=== PATIENT | female | born 1950 | race Caucasian/White ===

== ENCOUNTER → 2021-06-01 14:02 | Outpatient (CLI) | payer MEDICARE, SELFPAY | PROVIDERS: PCP Pediatrics; Visit Provider Nurse Practitioner | DX: Z20.822 Contact with and (suspected) exposure to COVID-19 (principal) | CPT/HCPCS: C9803; U0003; U0005 ==

== ENCOUNTER 2021-06-19 12:41 | Emergency (ER) | payer MEDICARE, SELFPAY ==
[2021-06-19 12:49] VITALS: PULSE 85; RESP 18; TEMP 36.8; O2SAT 98; BMI 33.6
[2021-06-19 14:15] VITALS: BP 153/77; PULSE 85; RESP 18; TEMP 36.8; O2SAT 98; BMI 33.8
[2021-06-19 14:29] LABS: UTC Influenza A Antigen Negative (Negative)
[2021-06-19 14:30] LABS: UTC Influenza B Antigen Negative (Negative)
--- NOTE | 2021-06-19 14:30 | HMH.EDUTC ---
[facility] [place] Disposition Clinical Impression: Bronchitis, Exposure to COVID-19 virus Disposition: Home, Self-Care Condition on Discharge: Good Instructions: DI for COVID-19 (Suspected or Confirmed ), DI for Acute Bronchitis Additional Instructions: covid swab was sent to lab, call tomorrow for results. self isolate until test results are known to be negative No sign of a bacterial infection. Likely viral. Viruses can take 7-14 days to run their course. Nasal saline and bulb syringe or nose Anna to remove nasal drainage to help with nasal congestion. Hard to eat, drink, sleep with nasal congestion so important to keep this cleaned out. Monitor temp. Tylenol or Motrin as needed for pain or fever Encourage fluids, water, Gatorade, Powerade, Pedialyte if /toddler/child Warm salt water gargles Warm fluids Sore throat lozenges Sleep elevated Humidifier/vaporizer Follow-up immediately for new or worsening symptoms or no noticeable improvement over the next 48-72 hours. watch glucose close while on med Prescriptions: predniSONE [Prednisone 20mg Tab] 20 mg PO BID #10 tab Prescription Printed Azithromycin [Zithromax 250mg tab] 250 mg PO DIRECTED #6 tab Prescription Printed Referrals: Pedro Reynaga MD [Primary Care Provider] - Time of Disposition: 14:35 Medical Decision Making - Miguelangel Inquiry Pt receiving controlled substance: No Vital Signs: 06/19/21 12:49 Temperature 98.3 F Temperature Source Oral Pulse Rate [Left Radial] 85 Respiratory Rate 18 02 Sat by Pulse Oximetry 98 Oxygen Delivery Method Room Air - Lab Data Lab Results 06/19/21 14:22: Influenza Type A Ag Negative, Influenza Type B Ag Negative Orders (Tests/Meds): ORDERS Category Date Time Status Covid-19 Nasal PCR ([facility]) Routine Lab 06/19/21 14:12 Received Medical Decision Narrative: pt does not want to go to ed for eval [facility] [place] HPI - General Chief complaint: Urgent [facility] Stated complaint: chills, cough, stomach pains, left ear pain Time Seen by Provider: 06/19/21 14:30 Mode of Arrival: Ambulatory Source of Information: Patient Limitations: No Limitations Description of Symptoms (Recalled from Triage Doc. by RN): chills, non productive cough, no appetite and tired for one week - History of Present Illness Provider Complaint: 70 yr old female presents for chills, cough, pain in chest when coughing, body aches and tiredness. covid exposed son is positive - Related Data Previous Rx's Medication Instructions Recorded Azithromycin [Zithromax 250mg 250 mg PO DIRECTED #6 tab 06/19/21 tab] predniSONE [Prednisone 20mg 20 mg PO BID #10 tab 06/19/21 Tab] Allergies Allergy/AdvReac Type Severity Reaction Status Date / Time CODEINE Allergy Unknown I-RASH Uncoded 05/02/17 14:34 From CIPRO Allergy Unknown I-RASH Uncoded 05/02/17 14:34 From LEVAQUIN Allergy Unknown I-RASH Uncoded 05/02/17 14:34 PCN (PENICILLIN) Allergy Unknown I-RASH Uncoded 05/02/17 14:34 Penicillin Allergy Unknown Uncoded 05/02/17 14:34 Quinolone Allergy Unknown Uncoded 05/02/17 14:34 Sulfonamide Allergy Unknown Uncoded 05/02/17 14:34 [facility] History - Hepatitis A Screen Attestation statement:: This patient has been screened for Hepatitis A risk factors. I have reviewed the patient's past medical history: Yes ROS Obtained: Yes Systems reviewed as appropriate & no additional complaints - Constitutional Constitutional: Reports system reviewed and no additional complaints, except as docu, Reports body ache, Reports chills, Reports fatigue, Reports fever(s), Reports poor appetite - Eyes Eyes: Reports system reviewed and no additional complaints, except as docu, Denies loss of vision - ENT Ears, Nose, Mouth, and Throat: Reports system reviewed and no additional complaints, except as docu, Reports nasal congestion, Reports nasal discharge, Reports sore throat - Cardiovascular Cardiovascular: R
[2021-06-19 14:34] VITALS: BP 153/77; PULSE 85; RESP 18; TEMP 36.8; O2SAT 98
== END 2021-06-19 14:40 | disposition home or self-care (01) ==
PROVIDERS: Emergency Provider Nurse Practitioner Family; PCP Pediatrics
DX: R05.9 Cough, unspecified (principal); Z20.822 Contact with and (suspected) exposure to COVID-19; J40 Bronchitis, not specified as acute or chronic
CPT/HCPCS: G0463; 87804; 99202; C9803; U0003; U0005

== ENCOUNTER 2022-08-11 09:18 | Emergency (ER) | payer MEDICARE, SELFPAY ==
[2022-08-11] VITALS (8 sets, daily range): BP systolic 125–155; BP diastolic 46–61; PULSE 71–76; RESP 18–20; TEMP 36.4; O2SAT 97; BMI 37.8
--- NOTE | 2022-08-11 09:20 | HMH.EDGENADL ---
Discharge Plan Disposition Patient Disposition: Home, Self-Care Prescriptions Prescriptions: No Action azithromycin 250 MG tablet 250 mg PO DIRECTED Qty: 6 0RF Rx Instructions: Take two (2) tablets on day #1, then one (1) tablet day #2 thru #5 prednisone 20 MG tablet 20 mg PO BID Qty: 10 0RF Activity Restrictions/Add. Instructions Additional Instructions/Restrictions: You may take Tylenol and ibuprofen as discussed. If you have any functional or cosmetic outcome that you would like to be evaluated by surgeon you can follow-up with the ENT therapeutic case manager or plastic surgery at your preference. Clinical Impressions Clinical Impression: Fracture of nasal bones, Hematoma of frontal scalp, Fall Discharge ED Provider: Lalo Moya General Adult HPI General Chief complaint: Fall Stated complaint: fall Time Seen by Provider: 08/11/22 09:20 History of Present Illness HPI narrative: 71-year-old female presenting by EMS after a fall and head injury. States that she had a mechanical fall and there is no syncopal or lightheaded episode that preceded this. States that she heard a pop superior aspect of her nasal bridge and has had bleeding externally and internally to her nose. No loss of consciousness after the head injury. No neck pain no maxillary or jaw pain associated with this just significant nose pain. She is not on anticoagulation. Other than significant pain in her nose and forehead she denies any pain elsewhere in her body, aside from her left hand which is increasing pain over the ulnar aspect of the metacarpophalangeal joint of the fifth digit. Related Data Previous Rx's Medication Instructions Recorded azithromycin 250 mg tablet 250 mg PO DIRECTED #6 tabs 06/19/21 prednisone 20 mg tablet 20 mg PO BID #10 tabs 06/19/21 Allergies Allergy/AdvReac Type Severity Reaction Status Date / Time ciprofloxacin Allergy Intermediate Rash Verified 08/11/22 09:46 codeine Allergy Intermediate Rash Verified 08/11/22 09:46 levofloxacin [From Levaquin] Allergy Intermediate Rash Verified 08/11/22 09:46 Penicillins Allergy Intermediate Rash Verified 08/11/22 09:46 Sulfa (Sulfonamide Allergy Intermediate Unknown Verified 08/11/22 09:46 Antibiotics) allergy reaction oxycodone [From Percocet] Allergy Unknown Verified 08/11/22 09:46 allergy reaction [facility] Disclaimer: The information contained in this section may have been updated after the patient was seen, as this information can be updated by other users. Social History Smoking Status: Never smoker alcohol intake: never current occupational status: other Travel in the last 8 weeks: None ROS Obtained: Yes All systems reviewed & no additional complaints except as documented Physical Exam General General appearance: alert Head Head exam: normocephalic (Hematoma frontal aspect of her forehead there is significant swelling over the bridge of her nose with a 0.5 cm laceration.) ENT ENT exam: Present other (No septal hematoma there is bleeding from bilateral nares intranasally, no midface instability or jaw tenderness or instability) Neck Neck exam: Absent tenderness Respiratory Respiratory exam: Present normal lung sounds bilaterally Cardiovascular Cardiovascular exam: Present regular rate; Absent tachycardia Abdominal Exam Abdominal exam: Present soft; Absent distention or tenderness Extremities Exam Extremities exam: Present other (Left hand fifth MCP tenderness and proximal phalanx tenderness over the left fifth digit neurovascular intact in no deformity) Neurological Exam Neurological exam: Present alert, oriented X3, CN II-XII intact and normal gait; Absent motor sensory deficit Medical Decision Making Miguelangel Inquiry Pt receiving controlled substance: No Vital Signs: 08/11/22 09:18 08/11/22 09:31 08/11/22 10:04 Temperature 97.6 F Temperature Source Oral Pulse Rate 71 Pulse Rate
--- NOTE | 2022-08-11 09:27 | CT_ITS ---
FINAL REPORT TECHNIQUE: Thin section axial images were obtained through the cervical spine without contrast. Multiplanar reconstruction images were obtained from the axial data. Exam was performed using dose reduction techniques. CLINICAL HISTORY: fall, injury fall, injury, laceration to nose, no LOC FINDINGS: There is a lucency through the right aspect of the C1 ring. The margins of this lucency are very well corticated. This may be old. No additional cervical spine fracture is identified. There is no facet lock. The craniocervical junction is normal. There is multilevel degenerative disc disease, most pronounced at C5-6 and C6-7. No acute paraspinal abnormality is identified. IMPRESSION: Lucency through the right aspect of the C1 ring, favor chronic. This may even be congenital. No acute fracture is identified. Consider MRI if clinical concern persists. Reviewed, Interpreted and Dictated by Alexa Ware MD Transcribed by Naye Bloom Authenticated and [facility]
--- NOTE | 2022-08-11 09:27 | CT_ITS ---
FINAL REPORT TECHNIQUE: Thin section axial images were obtained from skull base to vertex without contrast. Coronal reconstruction images were obtained from the axial data. Exam was performed using dose reduction technique. CLINICAL HISTORY: fall, injury fall, injury, laceration to nose, no LOC FINDINGS: There is no mass effect or midline shift. There is no hydrocephalus. There is no intracranial hemorrhage. The posterior fossa is without acute abnormality. The basilar cisterns are preserved. There is soft tissue edema along the left frontal scalp. No acute skull fracture is identified. IMPRESSION: No acute intracranial abnormality. Soft tissue edema along the left frontal scalp. Reviewed, Interpreted and Dictated by Alexa Ware MD Transcribed by Naye Bloom Authenticated and [facility]
--- NOTE | 2022-08-11 09:27 | XR_ITS ---
FINAL REPORT CLINICAL HISTORY: fall, injury, pain in 4th and 5th digit COMPARISON: none FINDINGS: AP, oblique, and lateral views of the left hand were obtained. There is no prior exam for comparison. There is no acute fracture of the left hand. The joint spaces are preserved. The soft tissues are normal. IMPRESSION: No acute osseous abnormality of the left hand. Reviewed, Interpreted and Dictated by Alexa Ware MD Transcribed by Madeleine Jeff Authenticated and [facility]
--- NOTE | 2022-08-11 09:27 | CT_ITS ---
FINAL REPORT TECHNIQUE: Thin section axial images were obtained through the face without contrast. Coronal reconstruction images are obtained from the axial data. CLINICAL HISTORY: fall, injury, laceration to nose, no LOC FINDINGS: There are bilateral, comminuted nasal bone fractures. There is right lateral displacement and angulation of both fractures. No additional facial fracture is identified. There is very mild mucoperiosteal thickening in the right maxillary sinus, likely chronic. There is prominent soft tissue edema along the bridge of the nose. Incidental note is made of advanced degenerative disease at the temporomandibular joints. IMPRESSION: Bilateral comminuted nasal bone fractures as above. Reviewed, Interpreted and Dictated by Alexa Ware MD Transcribed by Naye Bloom Authenticated and [facility]
--- NOTE | 2022-08-11 09:38 | PC.NURSE ---
pt to xray
--- NOTE | 2022-08-11 10:00 | PC.NURSE ---
Pt back from CT
--- NOTE | 2022-08-11 10:00 | PC.NURSE ---
Rounded on patient to see if medication was helping the pain. Pt stated it was helping. She stated she did not need anything at this time. Call light within reach
== END 2022-08-11 11:41 | disposition home or self-care (01) ==
PROVIDERS: Emergency Provider Student in an Organized Health Care Education/Training Program; PCP Pediatrics
DX: S02.2XXA Fracture of nasal bones, initial encounter for closed fracture (principal); S00.03XA Contusion of scalp, initial encounter; W19.XXXA Unspecified fall, initial encounter
CPT/HCPCS: 12011; 70450; 70486; 72125; 73130; 99284; 99285

== ENCOUNTER 2024-03-14 12:29 | Outpatient (CLI) | payer MEDICARE, SELFPAY ==
--- NOTE | 2024-03-14 12:30 | CT_ITS ---
PROCEDURE INFORMATION: Exam: CT Abdomen Without And With Contrast Exam date and time: 03/14/2024 1:21 PM Age: 73 years old Clinical indication: Abdominal pain; Localized; Right; Additional info: Right-sided abdominal pain TECHNIQUE: Imaging protocol: Computed tomography of the abdomen without and with contrast. Radiation optimization: All CT scans at this facility use at least one of these dose optimization techniques: automated exposure control; mA and/or kV adjustment per patient size (includes targeted exams where dose is matched to clinical indication); or iterative reconstruction. Contrast material: ISOVUE; Contrast volume: 75 ml; Contrast route: IV; COMPARISON: No relevant prior studies available. FINDINGS: Coronary arteries: Coronary artery calcifications may indicate coronary artery disease. Liver: Normal. No mass. Gallbladder and biliary ducts: Cholecystectomy Pancreas: Normal. No ductal dilation. Spleen: Normal. No splenomegaly. Adrenal glands: Normal. No mass. Kidneys: Mild bilateral renal atrophy. No hydronephrosis Stomach and bowel: 2.5 cm collection of air and debris projecting off of the 3rd duodenum. Most likely represents duodenal diverticulum., Less likely duodenal ulcer. Intraperitoneal space: Unremarkable. No free air. No significant fluid collection. Vasculature: Unremarkable. No abdominal aortic aneurysm. Lymph nodes: Pathologic periportal node 13 x 11 mm series 5, image 40 Bones/joints: Unremarkable. No acute fracture. No dislocation. Soft tissues: Unremarkable. IMPRESSION: 2.5 cm collection of air and debris projecting off of the 3rd duodenum. Most likely represents duodenal diverticulum., Less likely duodenal ulcer.
[2024-03-14 13:03] LABS: Blood Urea Nitrogen 31 mg/dl (7-17); Estimated Glomerular Filt Rate 34 ml/min (>60); GFR (African American) 41 ML/MIN (>60)
[2024-03-14] MEDS: SODIUM CHLORIDE 0.9% 10ML SYR (RAD ONLY) 10 ML IV (13:34)
[2024-03-14] MEDS: IOPAMIDOL-370 (76%);100ML BOTTLE 75 ML IV (13:34)
== END 2024-03-14 23:59 | disposition home or self-care (01) ==
LOC: RAD 12:30
PROVIDERS: PCP Pediatrics; Visit Provider Internal Medicine Gastroenterology
DX: R14.0 Abdominal distension (gaseous) (principal); R19.7 Diarrhea, unspecified; R10.9 Unspecified abdominal pain
CPT/HCPCS: 36415; 74170; 82565; 84520; Q9967

== ENCOUNTER 2024-03-15 08:21 | Outpatient (CLI) | payer MEDICARE, SELFPAY ==
[2024-03-19 01:13] LABS: Pancreatic Elastase, Fecal 684 (>200)
== END 2024-03-15 23:59 | disposition home or self-care (01) ==
LOC: LAB 06-17 09:34
PROVIDERS: Visit Provider Internal Medicine Gastroenterology
DX: R19.7 Diarrhea, unspecified (principal); R14.0 Abdominal distension (gaseous)
CPT/HCPCS: 82656

== ENCOUNTER 2024-04-24 07:23 | Day surgery (SDC) | payer MEDICARE, SELFPAY ==
[2024-04-19 15:03] VITALS: BMI 37.2
[2024-04-24 08:21] VITALS: BP 159/69; PULSE 81; RESP 16; TEMP 36.1; O2SAT 97
[2024-04-24] MEDS: LACTATED RINGERS 1000ML 1,000 ML 25 ML IV (08:29)
[2024-04-24 08:34] LABS: POC Glucose,Bedside 154 (70-110)
--- NOTE | 2024-04-24 08:34 | EXP.ANES.CKL ---
[facility] Disclaimer: The information contained in this section may have been updated after the patient was seen, as this information can be updated by other users. Medical History GERD (gastroesophageal reflux disease) Diabetes Obstructive sleep apnea Hyperlipidemia Hypertension Gassiness Surgical History History of laparoscopic appendectomy History of hysterectomy History of cholecystectomy History of tonsillectomy Family History Other No significant family history Social History Smoking Status: Never smoker alcohol intake: never substance use type: denies use current occupational status: other Travel in the last 8 weeks: None [facility] Anesthesia Checklist Patient Identification Patient Identification: Verbal (Name & ) Structural Data Admitted From: Home Planned Operative Procedure/s: colonoscopy Consent for Planned Operative Procedure(s) Verified: Yes NPO Status Verified Time NPO: 00:00 Airway Assessment Mallampati Score:: Class III C-Spine Mobility Assessed: Yes TMJ Mobility Assessed: Yes Dentition: Poor Dentition Neurological Assessment Level of Consciousness: Awake, Alert and Appropriate Anesthesia Plan Anesthesia Risk discussed: Yes Anesthesia Plan: Verified ASA Class: III Anesthesia Type: MAC
--- NOTE | 2024-04-24 08:59 | P.PNANES_ITS ---
[facility] Disclaimer: The information contained in this section may have been updated after the patient was seen, as this information can be updated by other users. Medical History GERD (gastroesophageal reflux disease) Diabetes Obstructive sleep apnea Hyperlipidemia Hypertension Gassiness Surgical History History of laparoscopic appendectomy History of hysterectomy History of cholecystectomy History of tonsillectomy Family History Other No significant family history Social History (Updated 04/24/24 @ 08:35 by Rick Saenz CRNA) Smoking Status: Never smoker alcohol intake: never substance use type: denies use current occupational status: other Travel in the last 8 weeks: None [facility] Anesthesia Checklist Patient Identification Patient Identification: Verbal (Name & ) Structural Data Admitted From: Home Planned Operative Procedure/s: lmt NPO Status Verified Time NPO: 00:00 Airway Assessment Mallampati Score:: Class II C-Spine Mobility Assessed: Yes TMJ Mobility Assessed: Yes Dentition: Poor Dentition Neurological Assessment Level of Consciousness: Awake, Alert and Appropriate Anesthesia Plan Anesthesia Risk discussed: Yes Anesthesia Plan: Verified ASA Class: III Anesthesia Type: MAC
--- NOTE | 2024-04-24 09:04 | HMH.PROCNOTE ---
[facility] Procedure Note Date: 04/24/24 Time: 09:22 Procedure Note:: Colonoscopy Procedure Report: Colonoscopy with cold snare polypectomy Endoscopist: Frankie Price II, MD Referring physician: Pedro Reynaga MD Date of Procedure: April 24, 2024 Equipment: Olympus 190 variable stiffness pediatric colonoscope Sedation: MAC sedation Indication: Mrs. Duggan is a 73-year-old female who is here for diagnostic colonoscopy secondary to right sided abdominal pain and focal right sided abdominal swelling. She does have obstipation and her CAT scan had shown large fecal burden and a duodenal diverticulum. She was due for surveillance colonoscopy secondary to a personal history of adenomatous polyps. She reports nausea, gassiness and bloating. She reports constipation followed by diarrhea. She did have prior cholecystectomy. She reports no rectal bleeding or weight loss. Procedure: Prior to the procedure, a history and physical exam was performed, and patient's medications and allergies were reviewed. The risks, benefits and alternatives of the sedation and procedure were discussed with the patient. All questions were answered and informed consent was obtained. The patient was brought to the procedure room. Patient identification and proposed procedure were verified by the physician and the nurse. The patient was placed in a left lateral decubitus position and the scope was passed under direct vision. Throughout the procedure, the patient's blood pressure, pulse, and oxygen saturations were monitored continuously. The colonoscopy was accomplished without difficulty. The patient tolerated the procedure well. Findings: On digital rectal examination there was normal rectal tone. There were no external hemorrhoids. The colonoscope was introduced through the anal canal to the rectum and advanced to the cecum. The ileocecal valve and appendiceal orifice were identified. The scope was advanced a short distance into the ileum which appeared grossly normal. The scope was then withdrawn into the colon. There was a single polyp over the appendiceal orifice that had a small mucous cap and was 4 to 5 mm. This was removed via cold snare polypectomy. The remaining cecum, ascending and transverse colon and mucosa were grossly normal. There was some angulation at the hepatic flexure suggestive of hepatic flexure syndrome. There were scattered diverticuli throughout the descending and sigmoid colon (LEFT colon). The rectum itself was normal. Upon retroflexion within the rectum there were grade 1-2 internal hemorrhoids. The preparation was excellent throughout with [place] Preparation Score of 9. The cecal time was 12 minutes. Impression: 1. Diminutive cecal polyp (4 to 5 mm) with mucus cap?probable small serrated adenoma 2. 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 Left-sided diverticulosis 4. Grade 1-2 internal hemorrhoids Plan: I did recommend the fiber bowel regimen (combined MiraLAX plus Citrucel) and buspirone. The patient states that her symptoms are not clearly improved. We will discuss additional treatment options. I will follow-up the polyp histology and recommend repeat surveillance colonoscopy again in 5 to 7 years based upon pathology.
[2024-04-24 09:11] VITALS: O2SAT 97
[2024-04-24 09:41] VITALS: BP 125/76; PULSE 84; RESP 18; TEMP 36.1; O2SAT 95
[2024-04-24 09:51] VITALS: BP 169/78; PULSE 81; RESP 18; O2SAT 93
[2024-04-24 10:01] VITALS: BP 169/78; PULSE 81; RESP 18; O2SAT 95
[2024-04-24 10:17] VITALS: BP 169/72; PULSE 72; RESP 18; O2SAT 97
== END 2024-04-24 10:17 | disposition home or self-care (01) ==
PROVIDERS: PCP Pediatrics; Visit Provider Internal Medicine Gastroenterology
PROC: (CPT 45385; principal; 2024-04-24 09:00)
DX: R10.9 Unspecified abdominal pain (principal); K59.89 Other specified functional intestinal disorders; R14.0 Abdominal distension (gaseous); R11.0 Nausea; K57.10 Diverticulosis of small intestine without perforation or abscess without bleeding; Z09 Encounter for follow-up examination after completed treatment for conditions other than malignant neoplasm; Z86.0101 Personal history of adenomatous and serrated colon polyps; K63.5 Polyp of colon; K57.30 Diverticulosis of large intestine without perforation or abscess without bleeding; K64.8 Other hemorrhoids; E11.8 Type 2 diabetes mellitus with unspecified complications; Z79.4 Long term (current) use of insulin
CPT/HCPCS: 45385; 82962; 88305; J7120

== ENCOUNTER 2025-01-30 13:44 | Emergency (ER) | payer MEDICARE, SELFPAY ==
[2025-01-30 13:46] VITALS: BP 153/64; BP 164/96; PULSE 64; PULSE 87; RESP 15; RESP 16; TEMP 36.4; O2SAT 99; BMI 34.5
[2025-01-30 14:30] VITALS: BP 145/76; PULSE 77; RESP 21; O2SAT 99
[2025-01-30 15:15] VITALS: BP 153/64; PULSE 61; RESP 18; O2SAT 99
--- NOTE | 2025-01-30 15:17 | HMH.EDGENADL ---
Discharge Plan Disposition Patient Disposition: Home, Self-Care Condition: Good Prescriptions Prescriptions: New doxycycline hyclate 100 mg tablet 100 mg PO BID 14 Days Qty: 10 0RF methocarbamol 500 mg tablet 500 mg PO BID Qty: 15 0RF No Action buspirone 10 mg tablet 10 mg PO DAILY buspirone 10 mg tablet 10 mg PO BID Qty: 60 2RF Rx Instructions: Please take 1/2 tablet p.o. nightly x 5 to 7 days and then 1 tablet p.o. nightly x 5 to 7 days and then 1 tablet p.o. twice daily thereafter cyclobenzaprine 10 mg tablet 10 mg PO PRN Patient Comments: TAKE 1 TABLET BY MOUTH EVERY 8 HOURS NEEDED FOR NECK STRAIN escitalopram oxalate 10 mg tablet 10 mg PO DAILY Patient Comments: TAKE 1 TABLET BY MOUTH ONCE DAILY (DME) pen needle, diabetic 32 gauge x /32 needle See Rx Instructions .ROUTE .MEDSUPPLY Qty: 1200 Rx Instructions: As directed Jardiance 25 mg tablet 25 mg PO DAILY (DME) FreeStyle Celso 2 Sensor Kit See Rx Instructions .ROUTE .MEDSUPPLY Qty: 1 Rx Instructions: As directed atenolol 50 mg tablet 50 mg PO DAILY allopurinol 300 mg tablet 300 mg PO DAILY olmesartan 20 mg tablet 20 mg PO DAILY Soliqua 100/33 100 unit-33 mcg/mL insulin pen 60 unit SQ DAILY omeprazole 40 mg capsule,delayed release(DR/EC) 40 mg PO DAILY Qty: 90 3RF buspirone 10 mg tablet 20 mg PO BID Qty: 120 12RF Rx Instructions: Please take 2 tablets p.o. twice daily Referrals Follow up/Referrals: Pedro Reynaga MD [Primary Care Provider, Medical] - See instructions Activity Restrictions/Add. Instructions Additional Instructions/Restrictions: Take the antibiotics as prescribed for 14 days. You can take the Robaxin in addition to Tylenol and ibuprofen for your symptoms return to the emergency department for any acute or worsening symptoms or redness that spreads beyond the area that it is now. Clinical Impressions Clinical Impression: Cat bite, Cellulitis Instructions Patient Instructions: Animal Bites Print Language Print Language: Welsh Discharge ED Provider: Carine Alatorre Adult HPI General Chief complaint: Animal Bite Stated complaint: AO-Cat bite R leg-poss infect, can't bare weight Time Seen by Provider: 01/30/25 15:16 History of Present Illness HPI narrative: Patient with history of diabetes, hypertension presented to the emergency department with right lower extremity pain. The patient states that she got bit by 2 days ago. Patient states that the cat got caught in the door and that is why the cat to the emergency. She states that she has had increased pain in her leg and is unable to bear weight. Patient states that she had immediate pain afterwards that has continued to get worse. Patient reports some mild redness around the Bite. Patient denies any fevers or other symptoms. Related Data Home Medications ?Medication ?Instructions ?Recorded ?Confirmed allopurinol 300 mg tablet 300 mg PO DAILY 02/28/24 10/29/24 atenolol 50 mg tablet 50 mg PO DAILY 02/28/24 10/29/24 insulin glargine 100 60 unit SQ DAILY 02/28/24 10/29/24 unit-lixisenatide 33 mcg/mL subcutaneous pen (Soliqua 100/33) olmesartan 20 mg tablet 20 mg PO DAILY 02/28/24 10/29/24 buspirone 10 mg tablet 10 mg PO DAILY 04/02/24 10/29/24 cyclobenzaprine 10 mg tablet 10 mg PO PRN 10/29/24 10/29/24 empagliflozin 25 mg tablet 25 mg PO DAILY 10/29/24 10/29/24 (Jardiance) escitalopram oxalate 10 mg tablet 10 mg PO DAILY 10/29/24 10/29/24 flash glucose sensor (FreeStyle #1 ea 10/29/24 10/29/24 Celso 2 Sensor kit) pen needle, diabetic 32 gauge x #1,200 ea 10/29/24 10/29/24 Previous Rx's ?Medication ?Instructions ?Recorded buspirone 10 mg tablet 10 mg PO BID #60 tabs 04/02/24 buspirone 10 mg tablet 20 mg (2 x 10 mg) PO BID #120 tabs 04/24/24 omeprazole 40 mg capsule,delayed 40 mg PO DAILY #90 caps 07/30/24 release doxycycline hyclate 100 mg tablet 100 mg PO BID 14 days #10 tabs 01/30/25 methocarbamol 500 mg tablet 500 mg PO BID #15 tabs 01/30/25 Allergies Allergy/AdvReac Type Severity Reaction Status Date / Time ciprofloxacin Allergy Intermediate Rash Verified 10/29/24 09:49 codeine Allergy Intermediate Rash Verified 10/29/24 09:49 levofloxacin (From Levaquin) Allergy Intermediate Rash Verified 10/29/24 09:49 Penicillins Allergy Intermediate Rash Verified 10/29/24 09:49 Sulfa (Sulfonamide Allergy Intermediate Swelling Verified 10/29/24 09:49 Antibiotics) of Lip/Tongue/Throat oxycodone (From Percocet) Allergy Difficulty Verified 10/29/24 09:49 Breathing PFSH PFS Disclaimer: The information contained in this section may have been updated after the patient was seen, as this information can be updated by other users. Medical History GERD (gastroesophageal reflux disease) Diabetes Obstructive sleep apnea Hyperlipidemia Hypertension Gassiness Surgical History History of laparoscopic appendectomy History of hysterectomy History of cholecystectomy History of tonsillectomy Family History Other No significant family history Social History Smoking Status: Never smoker alcohol intake: never substance use type: denies use current occupational status: other Travel in the last 8 weeks?: None Have you lived/traveled outside US in past 30 days?: No Contact w/someone who lives/traveled outside US past 30 days?: No Exposure to someone with infectious disease in past 14 days?: No Do you have a fever (greater than 100.4 F or 38 C)?: No Have you tested positive for COVID-19?: No Exposed to someone with COVID-19 in past 14 days?: No Do you have a sore throat?: No Do you have a cough?: No Do you have any weakness?: No Do you have any diarrhea?: No Are you experiencing any unusual bleeding?: No Do you have any muscle aches/pain?: No Do you have any abdominal pain?: No Are you experiencing loss of taste or smell?: No Other Medical History Have you received the Pneumonia Vaccine: Yes ROS Obtained: Yes All systems reviewed & no additional complaints except as documented and Yes Systems reviewed as appropriate & no additional complaints except as documented Physical Exam General General appearance: alert and in no apparent distress Head Head exam: atraumatic, normocephalic and normal inspection Eye Eye exam: Present normal appearance, PERRL and EOMI; Absent scleral icterus ENT ENT exam: Present normal exam and normal external ear exam Neck Neck exam: Present normal inspection and full ROM Chest Chest inspection: Present normal inspection and symmetric chest wall rise Respiratory Respiratory exam: Present normal lung sounds bilaterally; Absent respiratory distress or wheezes Cardiovascular Cardiovascular exam: Present regular rate, normal rhythm and normal heart sounds Abdominal Exam Abdominal exam: Present soft and distention; Absent tenderness, guarding or rebound Extremities Exam Extremities exam: Present normal inspection, full ROM and other (some decreased ROM of the right ankle) Back Exam Back exam: Present normal inspection and full ROM Neurological Exam Neurological exam: Present alert and oriented X3 Psychiatric Psychiatric exam: Present normal affect and normal mood Skin Skin exam: Present warm, dry and other (one small incision site on the right distal leg with surrounding redness, no palpable fluctuance or drainage) Medical Decision Making Medical Records Screening: Per USPSTF and CDC recommendations, given the prevalence of disease in our region, it is our hospital?s policy to screen for HIV and viral Hepatitis for all patients aged 18 and over and those with ongoing risk factors. Miguelangel Inquiry Pt receiving controlled substance: No Vital Signs: 01/30/25 13:46 01/30/25 13:46 01/30/25 14:30 Temperature 97.6 F Temperature Source Oral Pulse Rate 87 77 Pulse Rate [Left Radial] 64 Respiratory Rate 15 16 21 Blood Pressure 164/96 H 145/76 H Blood Pressure [Right Arm] 153/64 H Blood Pressure Mean [Right Arm] 93 02 Sat by Pulse Oximetry 99 99 99 Oxygen Delivery Method Room Air Room Air 01/30/25 15:15 01/30/25 16:00 01/30/25 17:53 Temperature Temperature Source Pulse Rate 61 61 65 Pulse Rate [Left Radial] Respiratory Rate 18 19 20 Blood Pressure 153/64 H 143/61 H 136/63 Blood Pressure [Right Arm] Blood Pressure Mean [Right Arm] 02 Sat by Pulse Oximetry 99 99 99 Oxygen Delivery Method Room Air Room Air Room Air Lab Data Lab results reviewed: Yes I reviewed the patient's lab results. Lab Results 01/30/25 15:42: WBC 11.3 H, RBC 4.03 L, Hgb 12.3, Hct 36.1 L, MCV 89.6, MCH 30.5, MCHC 34.1, RDW 14.7, Plt Count 285, MPV 9.9, Neut % (Auto) 76.9, Lymph % (Auto) 13.7, [place] % (Auto) 7.8, Eos % (Auto) 0.6, Baso % (Auto) 0.5, Neut # (Auto) 8.7 H, Lymph # (Auto) 1.6, [place] # (Auto) 0.9, Eos # (Auto) 0.1, Baso # (Auto) 0.1, Sodium 135 L, Potassium 4.9, Chloride 101, Carbon Dioxide 24, Anion Gap 14.9, BUN 31 H, Creatinine 1.90 H, Estimated Creat Clear 37, Estimated GFR 26 L, Est GFR ( Amer) 31 L, Glucose 213 H, Calcium 9.6, Total Bilirubin 0.6, AST 20, ALT 16, Alkaline Phosphatase 123, C-Reactive Protein 59.9 H, Total Protein 7.8, Albumin 4.4, Globulin 3.4 H, Albumin/Globulin Ratio 1.3, HCV Ab JULIÁN w/Rflx PCR Qn Negative, HIV Ag/Ab Combo Qual Negative 01/30/25 15:42 01/30/25 15:42 Orders (Tests/Meds): ED MEDICATIONS Generic Name Dose Route Start Last Admin Trade Name Freq PRN Reason Stop Dose Admin Methocarbamol 500 mg 01/30/25 18:02 Methocarbamol 500mg Tablet PO 01/30/25 18:03 ONCE ONE Discontinued Medications Generic Name Dose Route Start Last Admin Trade Name Freq PRN Reason Stop Dose Admin Acetaminophen 1,000 mg 01/30/25 17:14 01/30/25 17:29 Acetaminophen 500mg Tab PO 01/30/25 17:15 1,000 mg ONCE ONE Administration Doxycycline Hyclate 100 mg 01/30/25 15:34 01/30/25 16:02 Doxycycline Hycl 100 Mg Tablet PO 01/30/25 15:35 100 mg ONCE ONE Administration Fentanyl Citrate 25 mcg 01/30/25 17:15 01/30/25 17:30 Fentanyl 100mcg/2ml Vial IV 01/30/25 17:16 25 mcg ONCE ONE Administration Sodium Chloride 1,000 mls @ 999 mls/hr 01/30/25 16:22 01/30/25 17:12 Sod Chlor 0.9% 1000ml Bag IV 01/30/25 17:22 999 mls/hr .Q1H1M ONE Administration Iopamidol 75 ml 01/30/25 16:33 01/30/25 16:34 Iopamidol-370 (76%);100ml Bottle IV 01/30/25 16:34 75 ml ONCE ONE Administration Sodium Chloride 10 ml 01/30/25 16:33 01/30/25 16:33 Sodium Chloride 0.9% 10ml Syr (Rad Only) IV 01/30/25 16:34 10 ml ONCE ONE Administration Tetanus/Reduced Diphtheria/Acell Pertussis 0.5 ml 01/30/25 15:45 01/30/25 16:03 Tet/Diphth/Pert-Adult 0.5ml Syringe IM 01/30/25 15:46 0.5 ml .ONCE ONE Administration ORDERS Category Date Time Status CT RLE w/ con Stat Cat Scan 01/30/25 15:28 Completed CBC w/Auto Diff [Complete Blood Count Auto Diff] Stat Lab 01/30/25 15:42 Completed CMP [Comprehensive Metabolic Panel] Stat Lab 01/30/25 15:42 Completed CRP [C-Reactive Protein] Stat Lab 01/30/25 15:42 Completed HIV Combo Stat Lab 01/30/25 15:42 Completed Hepatitis C Ab Qual. W/ RFX Stat Lab 01/30/25 15:42 Completed Blood Culture Stat Micro 01/30/25 15:56 Received Medical Decision Narrative: Patient is a 74-year-old female with a past medical history of diabetes and hypertension who presented to the emergency department with right lower extremity wound and pain. On arrival, patient was hemodynamically stable with unremarkable signs. Differential limited to: Pain related to dog bite, cellulitis, abscess, fracture, amongst others. Patient's labs were reviewed and interpreted by myself: CBC showed mild leukocytosis, hemoglobin was stable. CMP showed mildly elevated creatinine at 1.9 from baseline of 1.6. CMP was otherwise unremarkable. CRP elevated at 59.9. CT scan was reviewed and interpreted by myself showed no evidence of abscess or other acute pathology. At this time, patient was discharged home with doxycycline for the cat bite given penicillin allergy. Patient was given Robaxin for pain and advised to use Tylenol Motrin in addition. Patient was otherwise discharged home in stable condition Critical Care Critical Care Time Critical Care Time: No
--- OUTSIDE RECORDS SUMMARY | 2025-01-30 15:18 | XMS_ITS | Encounter Summary ---
Author Organization [facility] Address [address] [place] [address] Care Team Providers Care Boiler Engineer Name Role Phone Pedro Reynaga MD Primary Care Provider Reason for Visit * Reason Comments Med Refill Encounter Details Date Type Department Care Team (Late st Contact Info) Description 01/30/[address] [id number] Pedro Reynaga MD [address] [place], [place] [id number] Social History Tobacco Use Types Packs/Day Years Used Date Smoking Tobacco: Never Smokeless Tobacco: Never Alcohol Use Standard Drinks/Week Comments Yes 0 (1 standard drink = 0.6 oz pure alcohol) Maybe once ever two to 3 months Comments No Sex and Gender Information Value Date Recorded Sex Assigned at Female 02/26/2024 8:43 AM EDT Legal Sex Female 2:35 PM EDT Gender Identity Female 02/26/2024 8:43 AM EDT Sexual Orientation Not on file documented as of this encounter Plan of Treatment Upcoming Encounters Date Type Department Care Team (Late st Contact Info) Description 03/07/2025 1:15 PM EDT Office Visit [facility] END[facility] [address] [phone] [place] [address] [place] [id number] documented as of this encounter Goals Goal Patient Goal Type Associated Problems Recent Progress Patient-Stated? Author Specialty Pharmacy General Goal General On track( 025 11:12 AM EDT) No Wes Griffiths [facility] Note: A1C < 7 % Lab Results Component Value Date Notes HGBA1C 7.1 09/02/2024 In person reassessment. A1C decreased and now just slightly above goal. Adding Jardiance for better glycemic control with added kidney benefits. NB 08/23/2024 Phone reassessment. No new lab values. Patient tolerating her medication well and reports no missed doses. NB HGBA1C 7.9 (A) 03/04/2024 New enrollment. A1C slightly decrease. Will continue monotherapy with Soliqua and will look to potentially add jardiance at the first of the year once the patient's plan changes and the medication should be covered then. HGBA1C 8.0 (A) 09/01/2023 documented as of this encounter Visit Diagnoses Not on filedocumented in this encounter Care Teams Boiler Engineer Relationship Specialty Start Date End Date Pedro Reynaga MD [address] [place] [address] PCP - General Internal Medicine 04/22/20 documented as of this encounter
--- OUTSIDE RECORDS SUMMARY | 2025-01-30 15:18 | XMS_ITS ---
Author Organization [facility] Address [address] [place] [address] Care Team Providers Care Machine Tack Puller Name Role Phone Pedro Reynaga MD Primary Care Provider Lith Endocrine Disorders Status:Enrolled (Active) Start date:03/04/2024 Enrollment date:03/04/2024 Enrollment reason:Converted fill to Current support & services provided:Clinical Assessment, Refill Coordination , Benefits Investigation, [facility] Dispensing Linked medications:Empagliflozin (Active), Insulin Glargine-Lixisenatide (Active) Linked problems:Uncontrolled type 2 diabetes mellitus with hyperglycemia (Active) Overview Endo [facility] Through 2028 Case Team Name Relationship Phone Wes Griffiths [facility] Pharmacist Wagner Jeter Vacuum Cleaner Assembler Pigment Furnace Tender Continued Care and Services Coordination
--- OUTSIDE RECORDS SUMMARY | 2025-01-30 15:18 | XMS_ITS | Clinical Summary ---
Author Organization [facility] Address [address] [place] [address] Care Team Providers Care Radiographer Angiogram Name Role Phone Pedro Reynaga MD Primary Care Provider Allergies Active Allergy Reactions Criticality Noted Date Comments Ciprofloxacin Swelling High 12/14/2020 Codeine Swelling High 12/14/2020 Levofloxacin Swelling High 12/14/2020 Penicillins Hives High 12/14/2020 Oxycodone-Acetaminophen Itching High 12/14/2020 Sulfa Antibiotics Swelling High 12/14/2020 Medications polyethylene glycol (MIRALAX) 17 GM/SCOOP powder MIX 17 GRAMS OF POWDER IN 8 OUNCES OF LIQUID AND DRINK ONCE DAILY 12/08/19 21 Active Continuous Blood Gluc Lidar Scientist (StormWindStyle Celso 2 Liberty) device Use 1 each See Admin Instructions. 1 each 02/25/20 23 Active Insulin Glargine-Lixis enatide (Soliqua) 100-33 UNT-MCG/ML solution pen-injector injection Inject 60 Units under the skin into the appropriate area as directed Daily. 15 mL 5 5 9:31 AM EDT 03/04/20 24 Active Additional Information Patient taking differently: 55 UnitsSubcutaneous Daily, Reported on 09/02/2024 Insulin Pen Needle (BD Pen Needle Charito 2nd Gen) 32G X 4 MM misc Inject 1 Needle under the skin into the appropriate area as directed Daily. 100 each 5 5 11:08 AM EDT 03/04/20 24 Active olmesartan (Benicar) 20 MG tablet Take 1 tablet by mouth Daily. 90 tablet 3 5 3:45 PM EDT 12/20/19 24 Active allopurinol (ZYLOPRIM) 300 MG tablet Take 1 tablet by mouth Daily. 90 tablet 1 4 2:33 PM EST 01/12/20 24 Active omeprazole (priLOSEC) 40 MG capsule Take 1 capsule by mouth Daily. 90 capsule 3 5 1:48 PM EDT 07/31/19 25 Active Misc Natural Products (Iberogast) liquid Take 10 drops by mouth 2 (Two) Times a Day. Active empagliflozin (Jardiance) 25 MG tablet tablet Take 1 tablet by mouth Daily. 90 tablet 3 5 1:38 PM EDT 09/03/19 25 Active busPIRone (BUSPAR) 10 MG tablet Take 2 tablets by mouth 2 (Two) Times a Day. 360 tablet 3 5 11:08 AM EDT 09/03/19 25 Active rosuvastatin (CRESTOR) 10 MG tablet Take 1 tablet by mouth Daily 90 tablet 1 5 10:33 AM EDT 12/10/19 25 025 Active atenolol (TENORMIN) 50 MG tablet Take 1 tablet by mouth Daily. 90 tablet 1 5 3:01 PM EDT 12/10/19 25 Active Continuous Glucose Sensor (FreeStyle Celso [address]) [facility] Inject 1 Device under the skin into the appropriate area as directed Every 14 (Fourteen) Days. 6 each 3 5 1:38 PM EDT 12/18/19 25 Active calcium carb-cholecalc iferol (RA Calcium 600/Vitamin D-3) 600-10 MG-MCG tablet per tablet Take 1 tablet by mouth 2 (Two) Times a Day. 180 tablet 1 01/20/20 25 Active Active Problems Problem Noted Date Diagnosed Date Hypercholesterolemia 02/24/2023 Assessment & Plan (02/24/2023 9:19 AM EDT): On statin. Due for levels. Will check Uncontrolled type 2 diabetes mellitus with hyper glycemia 12/14/2020 Overview (09/01/2023): Does well with glp1 but cost is prohibitive same with sglt2 Gi side effects from metformin Assessment & Plan (09/02/2024 9:57 AM EDT): Eyes-- has one next week Kidneys- up to date with nephrology. Will have her start taking jardiance for renal protection. I explained that to her Feet- look goot Cholesterol due in February Assess : improved Plan : start taking jardiance Assessment & Plan (03/04/2024 9:20 AM EDT): Improved A1c acceptable at 7.9 The plan is to use jardiance at the turn of ht year when it is free. Assessment & Plan (09/01/2023 9:31 AM EDT): Worse. A1c up to 8 We are stuck with minimal medication options. We could increase amaryl but it would cause more weight gain and we don't want that. Will emphasize bettter diet and exercise Assessment & Plan (02/24/2023 9:18 AM EDT): Diabetes is improving with treatment. Continue current treatment regimen. Diabetes will be reassessed in 6 months. Assessment & Plan (10/21/2022 12:16 PM EDT): Remains very hyperglycemic. Due to cost we need a new plan. Will stop farxiga and use soliqu. Pt was instructed in its use Assessment & Plan (01/11/2022 4:21 PM EDT): .deteriorated without metformin. Clearly needs something to replace it. Will use nan . Side effects were addressed Assessment & Plan (03/22/2021 1:57 PM EST): Diabetes is improving with treatment. Continue current treatment regimen. Diabetes will be reassessed in 6 months. Assessment & Plan (12/14/2020 10:16 AM EDT): Diabetes is improving with treatment. will check fructosamine to assess bg control over the last 3 weeks Diabetes will be reassessed in 3 months. Encounters Date Type Department Care Team Description 01/30/2025 Refill [facility] [address] [place] [address] Pedro Reynaga MD 01/30/2025 Refill [facility] [address] [place] [address] Pedro Reynaga MD 01/27/2025 Refill [facility] [address] [place] [address] Pedro Reynaga MD from Last 3 Months Family History Medical History Relation Name Comments COPD Brother 1 Lopez Congenital heart disease Father No Known Problems Half-Brother Tristan Brain cancer Half-Sister 1 Comfort Cancer Half-Sister 1 Comfort No Known Problems Half-Sister 2 Alicja No Known Problems Half-Sister 3 Kristine No Known Problems Half-Sister 4 Eneida Diabetes Maternal Aunt Kolby Pinzon Diabetes Maternal Grandmother Michelle Barclay Asthma Mother Natalia Kemalia COPD Mother Natalia Keal Cancer Mother Natalia Keal Heart failure Mother Natalia Keal No Known Problems Sister Naye Breast cancer Neg Hx Ovarian cancer Neg Hx Relation Name Status Comments Brother 1 Lopez Alive Brother 2 Kaden Father Half-Brother Tristan Alive Half-Sister 1 Comfort Half-Sister 2 Alicja Alive Half-Sister 3 Kristine Alive Half-Sister 4 Eneida Alive Half-Sister 5 Catherine Maternal Aunt Kolby Pinzon Maternal Grandmother Michelle Barclay Mother Natalia Mcbride Sister Naye Alive Social History Tobacco Use Types Packs/Day Years Used Date Smoking Tobacco: Never Smokeless Tobacco: Never Tobacco Cessation:Counseling Given: Not Answered Alcohol Use Standard Drinks/Week Comments Yes 0 (1 standard drink = 0.6 oz pure alcohol) Maybe once ever two to 3 months Comments No Sex and Gender Information Value Date Recorded Sex Assigned at Female 02/26/2024 8:43 AM EDT Legal Sex Female 2:35 PM EDT Gender Identity Female 02/26/2024 8:43 AM EDT Sexual Orientation Not on file Last Filed Vital Signs Vital Sign Reading Time Taken Comments Blood Pressure 124/68 09/02/2024 9:37 AM EDT Pulse 60 09/02/2024 9:37 AM EDT Temperature 36.1 C (96.9 F) 09/01/2023 9:08 AM EDT Respiratory Rate 20 09/01/2023 9:08 AM EDT Oxygen Saturation 100% 09/02/2024 9:37 AM EDT Inhaled Oxygen Concentration - - Weight 91.6 kg (202 lb) 09/02/2024 9:37 AM EDT Height 157.5 cm (5' 2 ) 09/02/2024 9:37 AM EDT Body Mass Index 36.95 09/02/2024 9:37 AM EDT Plan of Treatment Upcoming Encounters Date Type Department Care Team (Late st Contact Info) Description 03/07/2025 1:15 PM EDT Office Visit [facility] [address] [phone] Cristi Lopez MD [address] [address] Health Maintenance Due Date Last Done Comments TDAP/TD VACCINES (1 - Tdap) 10/20/1971 COLOGUARD 1997 COLON CANCER SCREENING 5 YEA R SIGMOIDOSCOPY [address] COLONOGRAPHY 1997 FECAL OCCULT BLOOD TEST 1997 FIT Testing (1 year) 1997 ZOSTER VACCINE (1 of 2) 2002 ANNUAL WELLNESS VISIT 12/14/2020 HEPATITIS C SCREENING 12/14/2020 MAMMOGRAM 04/22/2022 04/22/2020, 12/0 01/2020, 04/22/2020 DIABETIC FOOT EXAM 10/22/2023 10/21/2022, 0 10/21/2022, 10/21/2022, Additional history exists DXA SCAN 08/15/2024 08/15/2022 URINE MICROALBUMIN-CREATININ E RATIO (uACR) 08/31/2024 09/01/2023, 11/30/2021 INFLUENZA VACCINE 12/13/2024 01/30/2024, , 02/18/2022, Additional history exists COVID-19 Vaccine (3 - 2024-2 6 season) 2025 02/15/2021, 01/15/2021 HEMOGLOBIN A1C 03/04/2025 09/02/2024, 02/13, 09/01/2023, Additional history exists LIPID PANEL 03/04/2025 03/04/2024, 02/12, 11/30/2021, Additional history exists DIABETIC EYE EXAM 09/09/2025 09/09/2024, , 09/05/2022, Additional history exists COLONOSCOPY 07/27/2026 07/27/2016 COLORECTAL CANCER SCREENING 07/27/2026 Pneumococcal Vaccine 50+ Completed 024, 03/04/2019, 03/22/2017 Goals Goal Patient Goal Type Associated Problems Recent Progress Patient-Stated? Author Specialty Pharmacy General Goal General On track( 025 11:12 AM EDT) No Wes Griffiths, [facility] Note: A1C < 7 % Lab Results [...] and the medication should be covered then. NB HGBA1C 8.0 (A) 09/01/2023 Procedures Procedure Name Priority Date/Time Associated Diagnosis Comments SCANNED - EYE EXAM 09/09/2024 POCT GLYCOSYLATED HEMOGLOBIN (HGB A1C) Routine 09/02/2024 9:45 AM EDT Uncontrolled type 2 diabetes mellitus with hyperglycemia LIPID PANEL Routine 03/04/2024 9:23 AM EDT Uncontrolled type 2 diabetes mellitus with hyperglycemia MICROALBUMIN / CREATININE URINE RATIO Routine 09/01/2023 9:33 AM EDT Uncontrolled type 2 diabetes mellitus with hyperglycemia MAMMO SCREENING DIGITAL TOMOSYNTHESIS BILATERAL W CAD Routine 04/22/2020 11:04 AM EST Visit for screening mammogram from Last 3 Months or Most Recently Relevant to Health Maintenance Results * EYE EXAM SCANNED (09/09/2024) Anatomical Region Laterality Modality Other us Cristi Lopez MD CHART REVIEW TABS F inal Result * (ABNORMAL) POC Glycosylated Hemoglobin (Hb A1C) (09/02/2024 9:45 AM EDT) Pathologist [facility] Hemoglobin A1C 7.1(A) 4.5 - 5.7 % [facility] Lot Number [id number] [facility] Expiration Date 04/16/26 [facility] Blood 09/02/2024 9:45 AM EDT us Cristi Lopez MD POINT OF CARE TEST ORD ERABLES Final Result [facility]
[address] [place] [address], * (ABNORMAL) Lipid Panel (03/04/2024 9:23 AM EDT) Total Cholesterol 252(H) 0 - 200 mg/dL 03/05/2024 1:24 AM EDT [facility] Triglycerides 151(H) 0 - 150 mg/dL 03/05/2024 1:24 AM EDT [facility] HDL Cholesterol 37(L) 40 - 60 mg/dL 03/05/2024 1:24 AM EDT [facility] LDL Cholesterol 187(H) 0 - 100 mg/dL 03/05/2024 1:24 AM EDT [facility] VLDL Cholesterol 28 5 - 40 mg/dL 03/05/2024 1:24 AM EDT [facility] LDL/HDL Ratio 4.99 03/05/2024 1:24 AM EDT [facility] Blood Structure of left upper limb / Unknown Venipuncture / Unknown 03/04/2024 9:23 AM EDT 03/04/2024 9:23 AM EDT Narrative [facility] - 03/05/2024 1:24 AM EDT Cholesterol Reference Ranges (U.S. Department of Health and Human Services ATP III Classifications) Desirable <200 mg/dL Borderline High 200-239 mg/dL High Risk >240 mg/dL Triglyceride Reference Ranges (U.S. Department of Health and Human Services ATP III Classifications) Normal <150 mg/dL Borderline High 150-199 mg/dL High 200-499 mg/dL Very High >500 mg/dL HDL Reference Ranges (U.S. Department of Health and Human Services ATP III Classifications) Low <40 mg/dl (major risk factor for CHD) High >60 mg/dl ('negative' risk factor for CHD) LDL Reference Ranges (U.S. Department of Health and Human Services ATP III Classifications) Optimal <100 mg/dL Near Optimal 100-129 mg/dL Borderline High 130-159 mg/dL High 160-189 mg/dL Very High >189 mg/dL Cristi Lopez MD LAB BLOOD ORDERABLES F inal Result [facility]
[address] [place] [address], * (ABNORMAL) Microalbumin / Creatinine Urine Ratio - Urine, Clean Catch (09/01/2023 9:33 AM EDT) Microalbumin/C reatinine Ratio 35.2(H) 0.0 - 29.0 mg/g 09/01/2023 2:46 PM EDT [facility] Creatinine, Urine 99.5 mg/dL 09/01/2023 2:46 PM EDT [facility] Microalbumin, Urine 3.5 mg/dL 09/01/2023 2:46 PM EDT [facility] Urine Urine specimen obtained by clean catch procedure / Unknown Collection / Unknown 09/01/2023 9:33 AM EDT 09/01/2023 9:33 AM EDT Cristi Lopez MD URINE ORDERABLES Final Result [facility]
[address] [place] [address], [place] [phone] * Mammo Screening Digital Tomosynthesis Bilateral With CAD (04/22/2020 11:04 AM EST) Anatomical Region Laterality Modality Breast N/A Mammography 04/27/2020 5:33 PM EST Impressions 04/27/2020 5:35 PM EST No findings suspicious for malignancy. ACR BI-RADS CATEGORY: 1, NEGATIVE RECOMMENDATION: Yearly mammogram, yearly clinical breast exam, and encourage self breast awareness. CAD was used. The standard false negative rate of mammography is between 10% and 25%. Complex patterns or increased breast density will markedly elevate the false negative rate of mammography. A letter, in lay terminology, with the results of this exam will be mailed to the patient. If there is a palpable area of concern, biopsy should be considered regardless of imaging findings. This report was finalized on 04/27/2020 5:35 PM by Yolis Amaya MD. Narrative 04/27/2020 5:35 PM EST ROUTINE DIGITAL SCREENING MAMMOGRAM WITH TOMOSYNTHESIS HISTORY: Routine screening. IMAGE COMPARISON: Extending to 2014. TECHNIQUE: Low dose full field digital breast tomosynthesis imaging was performed with 2D and 3D acquisitions consisting of bilateral CC and MLO views. FINDINGS: The breasts are predominantly adipose tissue. The fibroglandular pattern appears stable. There is no mass, worrisome microcalcifications, or architectural distortion to suggest development of malignancy. Kashmir Umanzor MD IMG MAMMOGRAPHY ORDERABLE S Final Result from Last 3 Months or Most Recently Relevant to Health Maintenance Insurance [employer] HMO Care Teams Radiographer Angiogram Relationship Specialty Start Date End Date Pedro Reynaga MD [address] [place] [address] PCP - General Internal Medicine 04/22/20
--- OUTSIDE RECORDS SUMMARY | 2025-01-30 15:18 | XMS_ITS | Encounter Summary ---
Author Organization [facility] Address [address] [place] [address] Care Team Providers Care Packaging Line Operator Name Role Phone Pedro Reynaga MD Primary Care Provider Reason for Visit * Reason Comments Med Refill Encounter Details Date Type Department Care Team (Late st Contact Info) Description 01/30/[address] [address] Pedro Reynaga MD [address] [place], [place] [phone] Social History Tobacco Use Types Packs/Day Years [...] Visit [facility] [address] [phone] [place] [address] [place] [address] documented as of this encounter Goals Goal Patient Goal Type Associated Problems Recent Progress Patient-Stated? Author Specialty Pharmacy General Goal General On track( 025 11:12 AM EDT) No Wes Griffiths [facility] Note: A1C < 7 % Lab Results [...] on filedocumented in this encounter Care Teams Packaging Line Operator Relationship Specialty Start Date End Date Pedro Reynaga MD [address] [place] [address] PCP - General Internal Medicine 04/22/20 documented as of this encounter
--- OUTSIDE RECORDS SUMMARY | 2025-01-30 15:18 | XMS_ITS | Encounter Summary ---
[facility] Organization [facility] Address [address] [place] [address] Care Team Providers Care Ceramic Tiler Name Role Phone Pedro Reynaga MD Primary Care Provider Reason for Visit * Reason Comments Med Refill Encounter Details Date Type Department Care Team (Late st Contact Info) Description 01/27/[address] [address] Pedro Reynaga MD [address] [place], [place] [phone] Social History Tobacco Use Types Packs/Day Years [...] Description 03/07/2025 1:15 PM EDT Office Visit [facility] [address] [phone] [place] [address] [place] [phone] documented as of this encounter Goals Goal Patient Goal Type Associated Problems Recent Progress Patient-Stated? Author Specialty Pharmacy General Goal General On track( 025 11:12 AM EDT) No Wes Griffiths [facility] Note: A1C < 7 % Lab Results [...] on filedocumented in this encounter Care Teams Ceramic Tiler Relationship Specialty Start Date End Date Pedro Reynaga MD [address] [place] [address] PCP - General Internal Medicine 04/22/20 documented as of this encounter
--- NOTE | 2025-01-30 15:28 | CT_ITS ---
PROCEDURE INFORMATION: Exam: CT Right Lower Extremity With Contrast, Leg Exam date and time: 01/30/2025 4:27 PM Age: 74 years old Clinical indication: Injury or trauma; Other: Cat bite; Puncture; Lower leg; Right; Foreign body involvement not specified; Additional info: Cat bite with pain TECHNIQUE: Imaging protocol: CT of the right lower extremity with intravenous contrast was performed. Exam focused on the lower leg. Radiation optimization: All CT scans at this facility use at least one of these dose optimization techniques: automated exposure control; mA and/or kV adjustment per patient size (includes targeted exams where dose is matched to clinical indication); or iterative reconstruction. Contrast material: ISOVUE; Contrast volume: 75 ml; Contrast route: IV; COMPARISON: No relevant prior studies available. FINDINGS: Limitations: Motion artifact in the mid lower leg limits evaluation. Bones/joints: Mild osteoarthritis of the right hip joint. Mild osteoarthritis of the medial tibiofemoral compartment. Mild osteoarthritis of the patellofemoral joint. Large posterior calcaneal enthesophyte. Moderate plantar calcaneal spur. No acutely displaced fractures. No joint dislocation. No aggressive osseous lesions. Soft tissues: Chronic muscle fatty atrophy of the posterior thigh muscular compartment. There is no significant soft tissue swelling. No soft tissue fluid collections or hematomas. Vasculature: Mild atherosclerotic calcification of the arterial vasculature. Reproductive: There has been a hysterectomy. Other findings: Visualized pelvis is unremarkable. IMPRESSION: No acute findings. Specifically, no evidence of significant soft tissue swelling or abscesses. No acute osseous pathology.
[2025-01-30 15:53] LABS: Hematocrit 36.1 % (37.0-47.0); Hemoglobin 12.3 g/dL (12.2-16.2); Immature Granulocytes % 0.5 %; Mean Corpuscular HGB Conc 34.1 g/dL (31.8-35.4); Mean Corpuscular Hemoglobin 30.5 pg (27.0-31.2); Mean Corpuscular Volume 89.6 fl (81-99); Nucleated Red Blood Cells % 0 %; Platelet Count 285 K/mm3 (142-424); Red Blood Count 4.03 M/mm3 (4.20-5.40); Red Cell Distribution Width-SD 47.6 fL; White Blood Count 11.3 K/mm3 (4.8-10.8)
[2025-01-30 15:55] LABS: Albumin Level 4.4 g/dl (3.5-5.0); Chloride 101 mmol/L (98-107); Potassium 4.9 mmoL/L (3.5-5.1); Sodium 135 mmol/L (136-145)
[2025-01-30 15:58] LABS: Alanine Aminotransferase 16 U/L (12-78); Albumin/Globulin Ratio 1.3 (1.1-1.8); Alkaline Phosphatase 123 U/L (38-126); Anion Gap 14.9 mEq/L (5-15); Aspartate Amino Transferase 20 U/L (14-36); Bilirubin,Total 0.6 mg/dl (0.2-1.3); Blood Urea Nitrogen 31 mg/dl (7-17); Calcium 9.6 mg/dl (8.4-10.2); Carbon Dioxide 24 mmol/L (22.0-30.0); Creatinine Clearance Estimated 37 mL/min (50-200); Creatinine,Serum 1.90 mg/dl (0.52-1.04); Estimated Glomerular Filt Rate 26 ml/min (>60); GFR (African American) 31 ML/MIN (>60); Globulin 3.4 g/dL (1.3-3.2); Glucose 213 mg/dl (74-100); Total Protein,Serum 7.8 g/dl (6.3-8.2)
[2025-01-30 16:00] VITALS: BP 143/61; PULSE 61; RESP 19; O2SAT 99
[2025-01-30] MEDS: DOXYCYCLINE HYCL 100 MG TABLET PO (16:02)
[2025-01-30] MEDS: TET/DIPHTH/PERT-ADULT 0.5ML SYRINGE 0.5 ML IM (16:03)
[2025-01-30] MEDS: SODIUM CHLORIDE 0.9% 10ML SYR (RAD ONLY) 10 ML IV (16:33)
[2025-01-30] MEDS: IOPAMIDOL-370 (76%);100ML BOTTLE 75 ML IV (16:34)
[2025-01-30 16:35] LABS: C-Reactive Protein 59.9 mg/L (0-4)
[2025-01-30] MEDS: 0.9 % SODIUM CHLORIDE 1000ML 1,000 ML 999 ML IV (17:12)
[2025-01-30] MEDS: ACETAMINOPHEN 500MG TAB 1000 MG PO (17:29)
[2025-01-30] MEDS: FENTANYL 100MCG/2ML VIAL 25 MCG IV (17:30)
[2025-01-30 17:35] LABS: Hepatitis C Ab Qual. W/ RFX NEGATIVE (Negative)
[2025-01-30 17:53] VITALS: BP 136/63; PULSE 65; RESP 20; O2SAT 99
[2025-01-30] MEDS: METHOCARBAMOL 500MG TABLET 500 MG PO (18:10)
[2025-01-30 18:19] VITALS: BP 156/68; PULSE 66; RESP 19; TEMP 36.7; O2SAT 100
== END 2025-01-30 18:20 | disposition home or self-care (01) ==
PROVIDERS: Emergency Provider Student in an Organized Health Care Education/Training Program; PCP Pediatrics
DX: L03.115 Cellulitis of right lower limb (principal); E11.9 Type 2 diabetes mellitus without complications; I10 Essential (primary) hypertension; E78.5 Hyperlipidemia, unspecified; W55.01XA Bitten by cat, initial encounter
CPT/HCPCS: 73701; 80053; 85025; 86140; 86803; 87040; 87389; 90471; 90715; 96361; 96374; 99284; 99285; J3010; J7030; Q9967